=== PATIENT | male | born 1960 | race African-American/Black ===

== ENCOUNTER 2023-09-10 10:34 | Inpatient (IN) | payer OTHER ==
[~2023-09-10] VITALS: Ht 172.7 cm; Wt 75.4 kg
[2023-09-10 11:39] LABS: BASOPHILS % (AUTO) 0.2 % (0.0-2.0); EOSINOPHILS % (AUTO) 3.2 % (1.0-6.0); HEMATOCRIT 28.9 % (41-53); HEMOGLOBIN 9.2 g/dL (13.5-17.5); LYMPHOCYTES # (AUTO) 1.2 K/uL (1.0-4.8); LYMPHOCYTES % (AUTO) 19.9 % (22.0-44.0); MEAN CORPUSCULAR HEMOGLOBIN 27.1 pg (26.0-34.0); MEAN CORPUSCULAR HGB CONC 31.9 G/dL (31.0-37.0); MEAN CORPUSCULAR VOLUME 85 fL (80-100); MONOCYTES # (AUTO) 0.6 K/uL (0.1-1.0); MONOCYTES % (AUTO) 9.2 % (2.0-9.0); NEUTROPHILS # (AUTO) 4.2 K/uL (1.8-7.7); NEUTROPHILS % (AUTO) 67.5 % (40.0-70.0); PLATELET COUNT (AUTO) 260 K/uL (150-450); RED CELL DISTRIBUTION WIDTH 16.6 % (11.5-14.5); WHITE BLOOD COUNT (AUTO) 6.3 K/uL (4.5-11.0)
[2023-09-10 11:48] LABS: CALCIUM, TOTAL 8.2 mg/dL (8.8-10.5); CREATININE 2.02 mg/dL (0.60-1.30); POTASSIUM 4.6 mmol/L (3.5-5.1)
[2023-09-10 11:55] LABS: TROPONIN I-HIGH SENSITIVITY 23 ng/L (<76)
[2023-09-10 12:06] LABS: APPEARANCE,URINE HAZY (CLEAR); BILIRUBIN,URINE NEGATIVE (NEGATIVE); COLOR,URINE YELLOW (YELLOW); GLUCOSE, URINE (UA) 300-500 mg/dL (NEGATIVE); KETONES,URINE NEGATIVE (NEGATIVE); LEUKOCYTE ESTERASE ,URINE LARGE (NEGATIVE); NITRATE,URINE NEGATIVE (NEGATIVE); OCCULT BLOOD,URINE TRACE (NEGATIVE); PH,URINE 5.5 (5.0-8.0); PH,URINE DRUG SCREEN 5.5 (5.0-8.0); PROTEIN,URINE 300-600,SEE CONFIRM mg/dL (NEGATIVE); SPECIFIC GRAVITIY, URINE 1.024 (1.003-1.030)
[2023-09-10 12:11] LABS: ALBUMIN 2.5 g/dL (3.4-5.0); BILIRUBIN,TOTAL 0.2 mg/dL (0.1-1.0); TOTAL PROTEIN, SERUM 7.2 g/dL (6.4-8.2)
[2023-09-10 12:12] LABS: ALCOHOL, URINE DRUG SCREEN NEGATIVE (NEGATIVE); AMPHET/METH SCREEN,URINE POSITIVE (NEGATIVE); BARBITURATE SCREEN, URINE NEGATIVE (NEGATIVE); BENZODIAZEPINES SCREEN,URINE NEGATIVE (NEGATIVE); CANNABINOID SCREEN,URINE NEGATIVE (NEGATIVE); COCAINE SCREEN,URINE NEGATIVE (NEGATIVE); METHADONE SCREEN, URINE NEGATIVE (NEGATIVE); OPIATE SCREEN,URINE NEGATIVE (NEGATIVE); PHENCYCLIDINE SCREEN,URINE NEGATIVE (NEGATIVE)
[2023-09-10 12:13] LABS: PROTHROMBIN TIME 10.6 SEC (9.4-11.6)
[2023-09-10 12:26] LABS: RBC,URINE 0-2 /HPF (0-2); SULFOSALICYLIC ACID,URINE 3+ (Negative)
[2023-09-10 12:27] LABS: WBC,URINE >100 /HPF (0-5)
[2023-09-10 12:34] LABS: BACTERIA,URINE Many /HPF (None Seen)
[2023-09-10 12:36] LABS: TRANSITIONAL EPI CELLS,URINE Moderate /LPF (None Seen)
[2023-09-10 12:37] LABS: URINALYSIS COMMENT Few Trichomonas seen
[2023-09-10] MEDS ORDERED: ONDANSETRON HCL 4 MG/2 ML VIAL IVP PRN (12:45)
[2023-09-10] MEDS ORDERED: BISACODYL 10 MG RECTAL RECTAL SUPPOSITORY PR PRN (12:45)
[2023-09-10] MEDS ORDERED: ACETAMINOPHEN 325 MG TABLET PO PRN (12:45)
[2023-09-10] MEDS ORDERED: DEXTROSE 50%-WATER 25 GM/50 ML SYRINGE IVP PRN (12:45)
[2023-09-10] MEDS: SODIUM CHLORIDE 0.9% 1,000 ML IV ONE (12:49)
[2023-09-10] MEDS: CefTRIAXone 1 GM/DEXTROSE 50 ML IV ONE (12:50)
[2023-09-10] MEDS: VANCOMYCIN 1.25 GM/WATER(PEG) 250 ML IV ONE (14:34)
[2023-09-10] MEDS: SODIUM CHLORIDE 0.9% 1,000 ML IV SCH (15:00)
[2023-09-10] MEDS: HEPARIN SODIUM,PORCINE 5,000 UNITS/ML VIAL SQ SCH (16:00)
[2023-09-10] MEDS: INSULIN LISPRO 100 UNITS/ML SQ PRN (17:53)
[2023-09-10 18:00] LABS: GLUCOMETER DEV NAME(LOC) 5S.1B; GLUCOSE,POINT OF CARE 175 MG/DL (70-110)
[2023-09-10 18:05] LABS: GLUCOMETER DEV NAME(LOC) ERT.5; GLUCOSE,POINT OF CARE 252 MG/DL (70-110)
[2023-09-10 20:00] VITALS: BP 134/78; PULSE 102; RESP 18; TEMP 97.6
[2023-09-10 23:53] VITALS: BP 148/89; PULSE 102; RESP 19; TEMP 97.6
[2023-09-11 05:00] VITALS: BP 163/104; PULSE 104; RESP 19; TEMP 98.3
[2023-09-11 05:28] VITALS: BP 152/96; RESP 18
[2023-09-11 07:05] LABS: GLUCOMETER DEV NAME(LOC) 5S.1B; GLUCOSE,POINT OF CARE 118 MG/DL (70-110)
[2023-09-11 07:05] LABS: GLUCOMETER DEV NAME(LOC) 5S.1B; GLUCOSE,POINT OF CARE 271 MG/DL (70-110)
[2023-09-11 08:00] VITALS: BP 130/89; PULSE 105; RESP 18; TEMP 98.4
[2023-09-11] MEDS ORDERED: VANCOMYCIN 1GM/WATER(PEG/NADA) 200 ML IV SCH (08:00)
[2023-09-11 08:06] LABS: CALCIUM, TOTAL 8.2 mg/dL (8.8-10.5); CREATININE 1.48 mg/dL (0.60-1.30); POTASSIUM 4.4 mmol/L (3.5-5.1)
[2023-09-11] MEDS: PANTOPRAZOLE SODIUM 40 MG/VIAL IVP SCH (09:18)
[2023-09-11] MEDS: VANCOMYCIN 750 MG/WATER(PEG) 150 ML IV SCH (09:18)
[2023-09-11 11:30] LABS: GLUCOMETER DEV NAME(LOC) 5S.1B; GLUCOSE,POINT OF CARE 164 MG/DL (70-110)
[2023-09-11] MEDS: CefTRIAXone 1 GM/DEXTROSE 50 ML IV SCH (12:31)
[2023-09-11 20:45] LABS: GLUCOMETER DEV NAME(LOC) 5S.1B; GLUCOSE,POINT OF CARE 169 MG/DL (70-110)
[2023-09-11 21:05] VITALS: BP 143/76; PULSE 104; RESP 20; TEMP 98.1
[2023-09-12 01:02] VITALS: BP 131/92; PULSE 100; RESP 20; TEMP 98.2
[2023-09-12 04:33] VITALS: BP 150/87; PULSE 98; RESP 20; TEMP 98.3
[2023-09-12 06:26] LABS: GLUCOMETER DEV NAME(LOC) 5S.2C; GLUCOSE,POINT OF CARE 141 MG/DL (70-110)
[2023-09-12 07:26] LABS: CALCIUM, TOTAL 8.3 mg/dL (8.8-10.5); CREATININE 1.45 mg/dL (0.60-1.30); POTASSIUM 4.8 mmol/L (3.5-5.1); VANCOMYCIN,RANDOM 21.7 mcg/mL (25.0-50.0)
[2023-09-12 07:35] VITALS: BP 168/104; PULSE 96; RESP 20; TEMP 97.4
[2023-09-12] MEDS: VANCOMYCIN 1.25 GM/WATER(PEG) 250 ML IV SCH (08:00)
[2023-09-12 11:34] VITALS: BP 159/88; PULSE 90; RESP 20; TEMP 97.9
[2023-09-12 16:50] VITALS: BP 168/104; PULSE 87; RESP 20; TEMP 98
[2023-09-12 17:30] LABS: GLUCOMETER DEV NAME(LOC) 5S.2C; GLUCOSE,POINT OF CARE 112 MG/DL (70-110)
[2023-09-12 20:02] VITALS: BP 169/105; PULSE 92; RESP 20; TEMP 98
[2023-09-12] MEDS: HydrALAZINE HCL 20 MG/ML VIAL IVP PRN (20:27)
[2023-09-12 21:20] LABS: GLUCOMETER DEV NAME(LOC) 5S.2C; GLUCOSE,POINT OF CARE 246 MG/DL (70-110)
[2023-09-13 00:10] VITALS: BP 133/70; PULSE 96; RESP 16; TEMP 98.3
[2023-09-13 04:21] VITALS: BP 138/78; PULSE 95; RESP 16; TEMP 97.6
[2023-09-13 07:50] VITALS: BP 143/82; PULSE 85; RESP 18; TEMP 97.9
[2023-09-13 08:00] VITALS: BP 143/82; PULSE 85; RESP 18; TEMP 97.9
[2023-09-13] MEDS ORDERED: BACTDSB PO (08:20)
[2023-09-13] MEDS ORDERED: METF-1211 PO (08:21)
[2023-09-13 11:46] VITALS: BP 158/90; PULSE 95; RESP 18; TEMP 98.1
[2023-09-13 13:11] LABS: GLUCOMETER DEV NAME(LOC) 5N.1D; GLUCOSE,POINT OF CARE 279 MG/DL (70-110)
[2023-09-13 13:11] LABS: GLUCOMETER DEV NAME(LOC) 5N.1D; GLUCOSE,POINT OF CARE 196 MG/DL (70-110)
[2023-09-13 16:45] VITALS: BP 165/94; PULSE 96; RESP 18; TEMP 97.9
[2023-09-13 23:01] LABS: GLUCOMETER DEV NAME(LOC) 5S.2C; GLUCOSE,POINT OF CARE 248 MG/DL (70-110)
== END 2023-09-13 19:00 | disposition home or self-care (01) | DRG 52 ==
LOC: EDBD 10:34 → EMS 10:34 → 5S 15:54
PROVIDERS: ADMIT Internal Medicine; ATTEND Internal Medicine
DX: G92.8 Other toxic encephalopathy (principal); N17.9 Acute kidney failure, unspecified; D63.8 Anemia in other chronic diseases classified elsewhere; E86.0 Dehydration; N39.0 Urinary tract infection, site not specified; E11.65 Type 2 diabetes mellitus with hyperglycemia; F15.10 Other stimulant abuse, uncomplicated; N18.9 Chronic kidney disease, unspecified; E11.51 Type 2 diabetes mellitus with diabetic peripheral angiopathy without gangrene
CPT/HCPCS: 70450; 71045; 73700; 80048; 80053; 80202; 80307; 81001; 81002; 82550; 82962; 83880; 84484; 85025; 85610; 85730; 87086; 87186; 93005; 97163; 99285; C9113; G0378; J0360; J0696; J1644; J7030; Q9967; 36415-L1; 36415-TC

== ENCOUNTER 2024-11-14 10:04 | Emergency (ER) | payer OTHER ==
[~2024-11-14] VITALS: Ht 170.2 cm; Wt 77.3 kg
[~2024-11-14 10:04] MED LIST: AMLO5TAB66 PO; TAMS0.4C94 PO
[2024-11-14 10:06] VITALS: TEMP 98
[2024-11-14] MEDS ORDERED: METF-81 PO (10:10)
[2024-11-14] MEDS ORDERED: DULA0.75 SQ (10:10)
[2024-11-14] MEDS ORDERED: DORZ10DR10 OS (10:10)
[2024-11-14] MEDS ORDERED: BRIM5DRO9 OS (10:10)
[2024-11-14] MEDS ORDERED: LATA2.5D14 OS (10:10)
[2024-11-14] MEDS ORDERED: ASPI-1444 PO (10:10)
[2024-11-14] MEDS ORDERED: ATOR40TA71 PO (10:10)
[2024-11-14 10:56] LABS: BASOPHILS % (AUTO) 1.2 % (0.0-2.0); EOSINOPHILS % (AUTO) 4.4 % (1.0-6.0); HEMATOCRIT 38.2 % (41-53); HEMOGLOBIN 12.2 g/dL (13.5-17.5); LYMPHOCYTES # (AUTO) 1.5 K/uL (1.0-4.8); LYMPHOCYTES % (AUTO) 21.8 % (22.0-44.0); MEAN CORPUSCULAR VOLUME 88 fL (80-100); MONOCYTES # (AUTO) 0.4 K/uL (0.1-1.0); MONOCYTES % (AUTO) 6.2 % (2.0-9.0); NEUTROPHILS # (AUTO) 4.6 K/uL (1.8-7.7); NEUTROPHILS % (AUTO) 66.4 % (40.0-70.0); PLATELET COUNT (AUTO) 267 K/uL (150-450); RED BLOOD CELL COUNT(AUTO) 4.36 MIL/uL (4.50-5.90); RED CELL DISTRIBUTION WIDTH 16.4 % (11.5-14.5); WHITE BLOOD COUNT (AUTO) 6.9 K/uL (4.5-11.0)
[2024-11-14 11:18] LABS: ALBUMIN 2.8 g/dL (3.4-5.0); BILIRUBIN,DIRECT 0.1 mg/dL (0.00-0.20); BILIRUBIN,TOTAL 0.3 mg/dL (0.1-1.0); TOTAL PROTEIN, SERUM 7.4 g/dL (6.4-8.2)
[2024-11-14 11:19] LABS: ANION GAP 12 mmol/L (8-16); CALCIUM, TOTAL 8.6 mg/dL (8.8-10.5); CARBON DIOXIDE 20 mmol/L (22-29); CHLORIDE 104 mmol/L (98-107); CREATININE 2.31 mg/dL (0.60-1.30); GLOMERULAR FILTR. RATE CALC 35 mL/min (>60); GLUCOSE,RANDOM 129 mg/dL (70-110); POTASSIUM 4.6 mmol/L (3.5-5.1); SODIUM SERUM 136 mmol/L (136-145); UREA NITROGEN, BLOOD 42 mg/dL (7-18)
[2024-11-14] MEDS: ACETAMINOPHEN 500 MG TABLET PO ONE (11:23)
[2024-11-14] MEDS: ONDANSETRON HCL 4 MG/2 ML VIAL IVP ONE (11:23)
[2024-11-14 11:29] LABS: TROPONIN I-HIGH SENSITIVITY 39 ng/L (<76)
[2024-11-14 11:41] LABS: PROTHROMBIN TIME 10.3 SEC (9.4-11.6)
[2024-11-14 12:05] VITALS: BP 165/97; PULSE 69; RESP 18; O2SAT 99
[2024-11-14] MEDS: PROPARACAINE HCL 0.5% 15 ML OPHTHALMIC SOLUTION OS ONE (13:15)
[2024-11-14] MEDS: FLUORESCEIN SODIUM 1 MG STRIP OS ONE (13:16)
[2024-11-14] MEDS ORDERED: HydrALAZINE HCL 20 MG/ML VIAL IVP ONE ×2 (13:30)
== END 2024-11-14 14:18 | disposition left against medical advice (07) ==
LOC: EMS 10:08
DX: N17.9 Acute kidney failure, unspecified (principal); I10 Essential (primary) hypertension; H54.62 Unqualified visual loss, left eye, normal vision right eye; E11.9 Type 2 diabetes mellitus without complications; E78.00 Pure hypercholesterolemia, unspecified; F17.210 Nicotine dependence, cigarettes, uncomplicated; F15.90 Other stimulant use, unspecified, uncomplicated; F10.90 Alcohol use, unspecified, uncomplicated; Z79.82 Long term (current) use of aspirin; Z79.899 Other long term (current) drug therapy; Y90.9 Presence of alcohol in blood, level not specified
CPT/HCPCS: 99285; 96374; 70450; 71045; 80048; 80076; 82550; 82962; 83690; 83880; 84484; 85025; 85610; 85730; 36415; 93005; J2405